=== PATIENT | female | born 1970 | race Caucasian/White ===

== ENCOUNTER 2025-01-20 20:57 | Emergency (ER) | payer MEDICARE, OTHER ==
[~2025-01-20] VITALS: Ht 162.6 cm; Wt 59.0 kg
[2025-01-20] MEDS ORDERED: HYDROCODONE/APAP 5/325MG TABLET ONE (22:21)
[2025-01-20] MEDS ORDERED: TDAP [DIPH/PERTUSSIS/TET] 0.5 ML VIAL IM ONE ×2 (22:21→22:37)
[2025-01-20] MEDS: HYDROCODONE/APAP 5/325MG TABLET PO ONE (22:21)
[2025-01-20] MEDS: TDAP [DIPH/PERTUSSIS/TET] 0.5 ML VIAL IM ONE (22:22)
[2025-01-21 00:21] VITALS: BP 138/88; TEMP 98.4; O2SAT 97
== END 2025-01-21 00:21 | disposition home or self-care (01) ==
LOC: ER 21:02
DX: S30.1XXA Contusion of abdominal wall, initial encounter (principal); S20.219A Contusion of unspecified front wall of thorax, initial encounter; S50.311A Abrasion of right elbow, initial encounter; Z88.2 Allergy status to sulfonamides; W10.9XXA Fall (on) (from) unspecified stairs and steps, initial encounter; Y93.01 Activity, walking, marching and hiking; Y92.89 Other specified places as the place of occurrence of the external cause; Y99.8 Other external cause status
CPT/HCPCS: 71045-TC; 73060-TC; 76705-TC; 90715